=== PATIENT | female | born 2000 | race Two or more races ===

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

== ENCOUNTER 2020-05-04 17:18 | Inpatient (IN) | payer OTHER ==
[~2020-05-04] VITALS: Ht 167.6 cm; Wt 59.0 kg
[~2020-05-04 17:18] MED LIST: IRON18 MG PO; PRENATABS RX T1 EACH PO
== END 2020-05-06 17:54 | DRG 807 ==
LOC: LDR 17:18 → OB/GYN 05-05 15:12
PROVIDERS: ADMIT Obstetrics & Gynecology; ATTEND Obstetrics & Gynecology
PROC: 10E0XZZ Delivery of Products of Conception, External Approach (ICD-10-PCS; principal; 2020-05-04)
PROC: 0W8NXZZ Division of Female Perineum, External Approach (ICD-10-PCS; 2020-05-04)
PROC: 4A0HXFZ Measurement of Products of Conception, Cardiac Rhythm, External Approach (ICD-10-PCS; 2020-05-04)
DX: O80 Encounter for full-term uncomplicated delivery (principal); Z37.0 Single live birth; Z3A.38 38 weeks gestation of pregnancy

== ENCOUNTER 2022-09-04 22:03 | Emergency (ER) | payer OTHER ==
[~2022-09-04] VITALS: Ht 172.7 cm; Wt 54.0 kg
[2022-09-05] MEDS ORDERED: ONDANSETRON ODT4 MG PO (03:11)
[2022-09-05] MEDS ORDERED: PEPCID40 MG PO (03:11)
== END 2022-09-05 03:27 | disposition home or self-care (01) ==
LOC: ER 22:03
DX: R10.13 Epigastric pain (principal)

== ENCOUNTER 2022-10-14 08:00 | Emergency (ER) | payer OTHER ==
[~2022-10-14] VITALS: Ht 170.2 cm; Wt 50.8 kg
[~2022-10-14 08:00] MED LIST changes: +ONDANSETRON ODT4 MG PO; +PEPCID40 MG PO
== END 2022-10-14 10:43 | disposition home or self-care (01) ==
LOC: ER 08:00
DX: J03.90 Acute tonsillitis, unspecified (principal)

== ENCOUNTER 2024-06-27 19:12 | Emergency (ER) | payer OTHER ==
[~2024-06-27] VITALS: Ht 170.2 cm; Wt 54.9 kg
[2024-06-27 20:11] LABS: HEMATOCRIT 34.9 % (36.0-45.00); HEMOGLOBIN 11.9 g/dL (12.0-15.00); MEAN CELL VOLUME 81.6 fL (80.00-100.00); MEAN CORPUSCULAR HEMOGLOBIN 27.7 pg (27.00-32.0); PLATELET COUNT 161 K/uL (150-450); RED BLOOD COUNT 4.27 M/uL (4.00-6.00); RED CELL DISTRIBUTION WIDTH 16.4 % (11.5-14.5)
[2024-06-27 20:35] LABS: INR 1.04; PARTIAL THROMBOPLASTIN TIME 30.3 SECONDS (22.0-34.0); PROTHROMBIN TIME 11.3 SECONDS (9.0-11.5)
[2024-06-27 20:48] LABS: CREATININE SERUM 0.63 mg/dL (0.55-1.02); GFR 114.23; POTASSIUM 4.12 mEq/L (3.5-5.1)
[2024-06-27 21:42] LABS: URINE APPEARANCE Clear; URINE BILIRRUBIN Negative (NEGATIVE); URINE BLOOD Negative; URINE COLOR Yellow; URINE GLUCOSE Negative (NEGATIVE); URINE KETONE Negative (NEGATIVE); URINE LEUKOCYTE Negative; URINE NITRATE Negative; URINE PROTEIN Negative (NEGATIVE)
[2024-06-27 21:46] LABS: URINE BACTERIA 250.6 uL (0.0-1933); URINE EPITHELIAL CELLS 24.6 uL (0.0-38.8); URINE RBC 13.1 uL (0.0-20.8); URINE WBC 6.6 uL (0.0-23.2)
== END 2024-06-27 22:26 | disposition home or self-care (01) ==
LOC: ER 19:14
PROVIDERS: General Practice
DX: O20.9 Hemorrhage in early pregnancy, unspecified (principal); Z3A.01 Less than 8 weeks gestation of pregnancy